=== PATIENT | female | born 1970 | race Hispanic/Latino ===

== ENCOUNTER 2017-10-29 19:29 | Emergency (ER) | payer BC ==
[2017-10-29] MEDS ORDERED: traMADol HCl 50 MG TAB ONE (20:21)
[2017-10-29] MEDS ORDERED: Triple Antibiotic Oint 1 GM Packet ONE (20:21)
--- NOTE | 2017-10-29 20:21 | RAD ---
THREE VIEWS RIGHT HAND 10/29/17 HISTORY: Trauma with right hand pain. AP, lateral and oblique views right hand is obtained. Images demonstrate what appears to be an area of lucency in the distal tuft distal phalanx fifth digi t right hand. This may represent a nondisplaced distal phalangeal fracture. No other right hand fract ures or bony lesions seen. IMPRESSION: Fracture involving the distal tuft distal phalanx fifth digit right hand. POS: [facility]
== END 2017-10-29 20:42 | disposition home or self-care (01) ==
LOC: MADERS 19:29
DX: S62.636A Displaced fracture of distal phalanx of right little finger, initial encounter for closed fracture (principal); E03.9 Hypothyroidism, unspecified; X58.XXXA Exposure to other specified factors, initial encounter

== ENCOUNTER 2023-11-15 10:38 | Emergency (ER) | payer OTHER ==
[2023-11-15] MEDS ORDERED: Ketorolac Tromethamine 60 MG/2 ML VIAL ONE (11:28)
[2023-11-15] MEDS ORDERED: Methocarbamol 500 MG TAB ONE (11:28)
== END 2023-11-15 12:20 | disposition home or self-care (01) ==
LOC: MADERS 10:38
DX: S39.012A Strain of muscle, fascia and tendon of lower back, initial encounter (principal); M54.41 Lumbago with sciatica, right side; X50.1XXA Overexertion from prolonged static or awkward postures, initial encounter
CPT/HCPCS: 72131; 72192; 96372; J1885